=== PATIENT | female | born 1955 | race Caucasian/White ===

== ENCOUNTER → 2019-09-15 | Outpatient (CLI) | payer OTHER, MEDICARE ==
[~2019-09-15] MED LIST: ELDERBERRY JUICE; FLOMAX0.4 MG PO; KOMBUCHA; PERCOCET 5-3251 EACH PO; SYNTHROID125 MCG PO
== END ==
LOC: MRI 10:07
DX: M43.16 Spondylolisthesis, lumbar region (principal); M51.17 Intervertebral disc disorders with radiculopathy, lumbosacral region; M48.07 Spinal stenosis, lumbosacral region; M89.38 Hypertrophy of bone, other site; M46.87 Other specified inflammatory spondylopathies, lumbosacral region; G89.29 Other chronic pain; Z78.0 Asymptomatic menopausal state

== ENCOUNTER → 2019-10-10 | Outpatient (CLI) | payer OTHER, MEDICARE | LOC: BC 07:45 | PROVIDERS: ATTEND Family Medicine | DX: Z12.31 Encounter for screening mammogram for malignant neoplasm of breast (principal); Z78.0 Asymptomatic menopausal state ==